=== PATIENT | male | born 1975 | race Caucasian/White ===

== ENCOUNTER → 2018-05-05 17:39 | Outpatient (CLI) | payer OTHER, SELFPAY | PROVIDERS: Family Provider Internal Medicine; PCP Internal Medicine; Referring Provider Otolaryngology; Visit Provider Otolaryngology | DX: J32.9 Chronic sinusitis, unspecified (principal) | CPT/HCPCS: 87070; 87205 ==

== ENCOUNTER → 2020-12-09 20:00 | Outpatient (CLI) | payer OTHER, SELFPAY | PROVIDERS: Visit Provider Otolaryngology Otolaryngology/Facial Plastic Surgery | DX: G47.33 Obstructive sleep apnea (adult) (pediatric) (principal) | CPT/HCPCS: 95810 ==

== ENCOUNTER 2021-07-15 20:10 | Emergency (ER) | payer OTHER, SELFPAY ==
[2021-07-15 20:11] VITALS: BP 172/100; PULSE 73; RESP 16; TEMP 36.2; O2SAT 97; BMI 32.3
[2021-07-15] MEDS: Diphth,Pertuss(Acell),Tet Vac 0.5 ML Vial IM (21:33)
[2021-07-15] MEDS: Lidocaine 1% /Epi 1:100 (20ml) 20 ML Vial INFILT (21:33)
--- NOTE | 2021-07-15 21:33 | EX.ED.GENINJ ---
HPI History of Present Illness Chief Complaint: Laceration Informant: patient Narrative Narrative: Patient is a 46-year-old male present with laceration to his left wrist. Patient was using a telephone coin box collector to open a package when he accidentally cut his wrist with the knife. He is right-hand dominant. This occurred around 8 PM. He had significant bleeding at the time and has since stopped. Has some numbness and tingling of his thumb and index finger. No other complaints at this time. Is not on any blood thinners. Is not sure when his last tetanus was. Tetanus Immunization: Unknown [facility] Home Medications Oral appliance #1 ea 01/25/21 [Rx Last Taken Unknown] venlafaxine 75 mg capsule,extended release 24 hr 75 mg PO DAILY 01/25/21 [History Last Taken Unknown] Allergy/AdvReac Type Severity Reaction Status Date / Time Iodinated Contrast Media AdvReac hives Verified 07/15/21 20:11 meperidine [From Demerol] AdvReac Nausea Verified 07/15/21 20:11 Social History (Reviewed 01/25/21 @ 13:32 by Angie Webb SOCIAL SERVICE TECHNICIAN, SOCIAL SERVICE TECHNICIAN-C) Smoking Status: Never smoker ROS ROS ED Constitutional Constitutional ED: Denies chills or fever(s) Eyes Eyes: Denies change in vision ENT ENT ED: Denies sore throat Cardiovascular Cardiovascular: Denies chest pain Respiratory/Chest Respiratory/Chest: Denies dyspnea Gastrointestinal Gastrointestinal: Denies nausea or vomiting Musculoskeletal Musculoskeletal: Reports other Details: left wrist pain Integumentary Reports other Details: laceration to left wrist Neurologic Neurologic: Reports paresthesias; Denies headache(s) or weakness Psychiatric Psychiatric: Denies depression Hematologic/Lymphatic Hematologic/Lymphatic: Denies easy bleeding or easy bruising EXAM Physical Exam Const Vital Signs: 07/15/21 20:11 07/15/21 22:10 Temperature 97.2 F L Temperature Source Temporal Pulse Rate 73 Respiratory Rate 16 16 Blood Pressure 172/100 H Blood Pressure Mean 124 Pulse Ox 97 Oxygen Delivery Method Room Air Positive well nourished and well developed General Appearance ED: well developed and NAD HEENT atraumatic Eyes PERRL and EOMs intact bilaterally Chest Wall inspection of chest normal Resp normal respiratory effort Cardio regular rhythm Cardio Narrative: 2+ left radial pulse. Rate: regular rate GI non-distended Extremity normal to inspection and full ROM General Extremety ED: Negative for deformity or tenderness General Extremity: Negative for deformity Neuro oriented x3 and moves all extremities Neuro Narrative: Subjective paresthesias to the left thumb and lateral aspect of the index finger. Normal intrinsic movements of the hand. Able to give a thumbs up, make a fist and make an okay sign. Normal flexion and extension of the wrist. Sensorium / Orientation: alert Skin Skin Narrative: 4 cm full-thickness linear laceration over the lateral aspect of the left wrist running proximal to distal. PROC Procedures Lacerations wrist : Length: 1.57 in Depth: Skin Shape: Linear Prep: Sterile Conditions and Chlorhexadine Laceration repair: Irrigated, Lidocaine with epi, Skin sutures and Wound explored Irrigated (ml): 250 Number of Sutures/Abhinav: 3 Suture Information: Ethilon, Horizontal (3), Mattress and 4-0 Comment: No pulsatile bleeding noted. MDM MDM MDM Narrative Medical decision making narrative: Patient evaluated for laceration to his left wrist. He is right-hand dominant. Patient initially had no bleeding however on range of motion of the wrist he started having brisk oozing. There is no pulsatile bleeding. Radial pulse is palpable just medial to the laceration. I do not feel any pulsatile hematoma. I do not visualize exact source of bleeding however it is stopped with direct pressure. Given that the bleeding was not pulsatile I do not think there is a radial artery laceration. Regardless there is good collateral blood flow. Laceration repair performed. See procedure note. Patient does have some subjective paresthesias to the radial nerve distribution however movement is intact. Wound is monitored after laceration repair and there is no further bleeding or development of hematoma. Patient has good collateral flow with Charles test to the ulnar artery. Pressure dressing is applied and an Cj wrap. Patient is given a wrist splint to to decrease range of motion while this heals. Counseled on return precautions. Patient verbalizes agreement understand this plan. Discharged home in stable condition. Discharge Plan Triage Chief Complaint: Laceration ED Provider: Ada Arroyo Dx/Rx/DC Orders Clinical Impression: Laceration of left wrist, Need for Tdap vaccination Instructions: ED Laceration Hand with ... Prescriptions: No Action venlafaxine [Effexor XR] 75 mg capsule,extended release 24hr 75 mg PO DAILY RF: 0 (DME) Oral appliance See Rx Instructions .ROUTE .MEDSUPPLY Qty: 1 RF: 0 Primary Care Provider: Kalia Long Referrals: Kalia Long MD [Primary Care Provider] - Activity Restrictions/Additional Instructions: Sutures should be removed in 10 days. Wear the splint and Cj wrap for at least 3 days. No significant activity or movement of the wrist until this heals further. Disposition Disposition: Home, Self Care Discharge Date/Time: 07/15/21 22:17
[2021-07-15 22:10] VITALS: RESP 16
== END 2021-07-15 22:17 | disposition home or self-care (01) ==
PROVIDERS: Emergency Provider Emergency Medicine; PCP Family Medicine; Visit Provider Emergency Medicine
DX: S61.512A Laceration without foreign body of left wrist, initial encounter (principal); W26.9XXA Contact with unspecified sharp object(s), initial encounter; Z23 Encounter for immunization
CPT/HCPCS: 12002; 90471; 90715; 99284

== ENCOUNTER 2021-07-16 10:45 | Emergency (ER) | payer OTHER, SELFPAY ==
[2021-07-16 10:46] VITALS: BP 150/103; PULSE 68; RESP 18; TEMP 36.6; O2SAT 98; BMI 32.3
--- NOTE | 2021-07-16 11:25 | EDS_ITS ---
HPI History of Present Illness Chief Complaint: Laceration Informant: patient and spouse/S.O. Onset/Context/Timing Onset: Yesterday Context: Gradual Onset Timing: Continuous Quality of Pain: - (sore) Location: left wrist Current Severity: Mild Maximum Severity: Moderate Narrative Narrative: Patient had an accidental laceration from a box knife to his left wrist yesterday and there was a lot of bleeding. It was repaired here, and the bleeding was much worse today, saturated the dressing and was oozing out briskly and bright red. They put a tight dressing on it and present for reevaluation. He states it is sore but not severe as far as the pain. He denies any li ghtheadedness or systemic symptoms for blood loss. PFSH PFSH no medical history Home Medications Oral appliance #1 ea 01/25/21 [Rx Last Taken Unknown] venlafaxine 75 mg capsule,extended release 24 hr 75 mg PO DAILY 01/25/21 [History Last Taken Unknown] Allergy/AdvReac Type Severity Reaction Status Date / Time Iodinated Contrast Media AdvReac hives Verified 07/16/21 10:48 meperidine [From Demerol] AdvReac Nausea Verified 07/16/21 10:48 Social History Smoking Status: Never smoker ROS ROS ED Constitutional Constitutional ED: Denies chills or fever(s) Musculoskeletal Musculoskeletal: Reports extremity pain; Denies neck pain Integumentary Reports as per HPI and wounds; Denies Abrasions or rash Neurologic Neurologic: Denies paresthesias or weakness EXAM Physical Exam Const Vital Signs: 07/16/21 10:46 Temperature 97.9 F Temperature Source Temporal Pulse Rate 68 Respiratory Rate 18 Blood Pressure 150/103 H Blood Pressure Mean 118 Pulse Ox 98 Oxygen Delivery Method Room Air Positive well nourished and well developed General Appearance ED: well developed and NAD Neck full ROM and supple Back/Spine normal ROM and normal to inspection Extremity full ROM Extremity Narrative: Full range of motion left hand and wrist, no active bleeding from laceration no signs of infection Neuro oriented x3, no focal motor deficits and no sensory deficits noted Sensorium / Orientation: alert Psych mental status grossly normal and thought process normal Skin Skin Narrative: sutured laceration left radial volar wrist, no active bleeding. Hematoma present volar wrist. Difficult to palpate radial and ulnar pulses but they are present more proximally. Brisk cap refill distally less than 3 seconds all fingers. Rashes: no rashes MDM MDM MDM Narrative Medical decision making narrative: Patient is reassured. If his radial artery was injured which he suspected that it was, his ulnar artery is far from the injury and is patent, he is getting good blood flow to his hand, we discussed reasons to return and ice, pressure if it happens again, which basically they did at home and it worked. Discharge Plan Triage Chief Complaint: Laceration ED Provider: Arcadio Dawn Dx/Rx/DC Orders Clinical Impression: Bleeding from wound, Visit for wound check Instructions: ED Post Op Wound Check, Bleeding Prescriptions: No Action venlafaxine [Effexor XR] 75 mg capsule,extended release 24hr 75 mg PO DAILY RF: 0 (DME) Oral appliance See Rx Instructions .ROUTE .MEDSUPPLY Qty: 1 RF: 0 Primary Care Provider: Kalia Long Referrals: Kalia Long MD [Primary Care Provider] - (as previously directed) Disposition Disposition: Home, Self Care
[2021-07-16 11:26] VITALS: BP 132/88; PULSE 74; RESP 14; TEMP 36.9; O2SAT 100
== END 2021-07-16 11:36 | disposition home or self-care (01) ==
PROVIDERS: Emergency Provider Emergency Medicine; PCP Family Medicine; Visit Provider Emergency Medicine
DX: S61.512D Laceration without foreign body of left wrist, subsequent encounter (principal); W26.0XXD Contact with knife, subsequent encounter
CPT/HCPCS: 99282

== ENCOUNTER 2024-06-08 15:30 | Outpatient (RCR) | payer OTHER, SELFPAY ==
--- NOTE | 2024-05-25 19:08 | HP.PTEVAL_ITS ---
Patient's Visit Information Visit Information Visit Information: ISAÍAS ORTIZ is a 49 year old M referred to Physical Therapy by Dr. Ivan Brady MD with a diagnosis of LUMBAR RADICULOPATHY. Date of Evaluation: 05/25/24 Physical Therapist: Carlos Daley PT, Cert MDT, OCS Visit Plan Frequency: 2x /Week Duration: 4 Weeks Plan: PT INTERVENTIONS BEVERLEY EX'S ,DLS ,POSTURAL EX'S , LE FLEXABILITY ,HIP STRENGTHENING AND POSTURE/BODY MECHANICS Subjective Subjective: This 49 y/o male presents to physical therapy with lumbar radiculopathy. Patient has c/o symptoms in lumbar and left leg [address] Brady had x-rays showed DDD L4-5 ,no medication . Patient has h/o lumbar history of a microdiscectomy L5-S1 in 2007 and 2004. Plan for MRI 06/16/24. Patient has been doing well past 5 years. No specific injury or mechanism injury. Pain has no pain. Pain normally located left LS. Aggravating factors sitting, no specific lifting ar bending. Alleviating rest. Coughing/sneezing-. Bowel/bladder -. Patient sleeping okay-Patient condition affects QOL . Patient goals to decrease episode of pain. 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[employer]: Objective Objective: POSTURE: WFL PALPATION: unremarkable GAIT: reciprocal pattern NEURO: denies paresthesia/tingling ,reflexes L3-4,L4-5,L5-S1 2/3 FLEXABILITY: hamstrings min tight HIP PROM: flexion 25 degrees tightness pain LUMBAR ROM: flexion WFL ,extension min loss ,side glides min loss MMT: quads/hams 4/5 ,hip flexion 4/5 ,ankle 5/5 Special Tests L/S Slump test left side: Negative L/S Slump test right side: Negative L/S Left Straight Leg Raise: Negative L/S Right Straight Leg Raise: Negative Lumbar Standing: Flexion - Mechanical Response: No effect Lumbar Standing: Flexion - Symptoms During Testing: No effect Lumbar Standing: Flexion - Symptoms After Testing: No effect Lumbar Standing: Extension - Mechanical Response: No effect Lumbar Standing: Extension - Symptoms During Testing: Increases Lumbar Standing: Extension - Symptoms After Testing: No worse Lumbar Standing: Right Side Glides - Mechanical Response: No effect Lumbar Standing: Right Side [place] - Symptoms During Testing: No effect Lumbar Standing: Right Side [place] - Symptoms After Testing: No effect Lumbar Standing: Left Side [place] - Mechanical Response: No effect Lumbar Standing: Left Side [place] - Symptoms During Testing: No effect Lumbar Standing: Left Side [place] - Symptoms After Testing: No effect Lumbar Lying: Flexion - Mechanical Response: No effect Lumbar Lying: Flexion - Symptoms During Testing: No effect Lumbar Lying: Flexion - Symptoms After Testing: No effect Lumbar Lying: Extension - Mechanical Response: Increases motion Lumbar Lying: Extension - Symptoms During Testing: Decreases Lumbar Lying: Extension - Symptoms After Testing: Better Balance/Special Test Scores Oswestry Low Back Score: 10 Goals Goal 1:: Patient to be I with HEP for back Goal Time Frame: 4-6 Weeks Goal 2:: Patient to return to function of recovery for ADLS and housework Goal Time Frame: 4-6 Weeks Goal 3:: Patient to back oswestry score by 5 points to improve QOL Goal Time Frame: 4-6 Weeks Goal 4:: Patient to demonstrate 75% to improve function and no pain Goal Time Frame: 4-6 Weeks Rehabilitation Potential Physical Therapy Diagnosis: This patient has h/o lumbar discectomy x2 with current symptoms derangement with lumbar radiculopathy with pain worse with positioning and motion testing worse with sitting thus will benefit from skilled PT Rehabilitation Potential: Good Anticipated Interventions Patient/Client Instruction: Educate patient on: Condition and Plan of Care For the Purpose of:: To decrease pain, To increase ROM, To improve muscle performance and motor function, To improve ability to perform ADL's, To increase tolerance to activity/condition/position, To improve ability of physical actions for home/community/work/leisure, To improve health of tissue, To decrease soft tissue restriction, To increase flexibility/ROM, To reduce risk of recurrence and To prevent re-injury Therapeutic Exercise to Include: Strength training, Body mechanics, Postural training, Flexibilty training, Dynamic Lumbar Stabilization and Beverley Exercises For the Purpose of:: To decrease pain, To increase ROM, To improve muscle perfo rmance and motor function, To increase tolerance to activity/condition/position, To improve ability of physical actions for home/community/work/leisure, To improve health of tissue, To decrease soft tissue restriction, To increase flexibility/ROM, To reduce risk of recurrence and To prevent re-injury TENS: Yes IF ES: Yes Cryotherapy (ice pack, ice massage): Yes Thermo therapy (hot pack): Yes Ultrasound (thermal/non thermal): Yes For the Purpose of:: To decrease pain, To increase ROM, To improve nutrient delivery to tissue, To increase oxygenation perfusion, To improve health of tissue and To decrease soft tissue restriction Text: Thank you for the opportunity to evaluate your patient. For Medicare and Medicare HMO plans, please review the plan of care and approve it. It will need to be FAXED BACK to us at [phone] for Medicare purposes. For Medicare only, by signing this I certify the plan of care. Please let me know if there are questions or concerns regarding this plan of care. Physician Signature: Date:
--- NOTE | 2024-10-21 08:31 | HP.PT.NRP ---
Patient Information Patient Information: ISAÍAS ORTIZ was seen in my office for initial evaluation on 05/25/24. The following Plan of Care was established for this patient: POC Established Initial Frequency: 2x /Week Initial Duration: 4 Weeks Anticipated Interventions Patient/Client Instruction: Educate patient on: Condition and Plan of Care For the Purpose of:: To decrease pain, To increase ROM, To improve muscle performance and motor function, To improve ability to perform ADL's, To increase tolerance to activity/condition/position, To improve ability of physical actions for home/community/work/leisure, To improve health of tissue, To decrease soft tissue restriction, To increase flexibility/ROM, To reduce risk of recurrence and To prevent re-injury Therapeutic Exercise to Include: Strength training, Body mechanics, Postural training, Flexibilty training, Dynamic Lumbar Stabilization and Gaurav Exercises For the Purpose of:: To decrease pain, To increase ROM, To improve muscle performance and motor function, To increase tolerance to activity/condition/position, To improve ability of physical actions for home/community/work/leisure, To improve health of tissue, To decrease soft tissue restriction, To increase flexibility/ROM, To reduce risk of recurrence and To prevent re-injury TENS: Yes IF ES: Yes Cryotherapy (ice pack, ice massage): Yes Thermo therapy (hot pack): Yes Ultrasound (thermal/non thermal): Yes For the Purpose of:: To decrease pain, To increase ROM, To improve nutrient delivery to tissue, To increase oxygenation perfusion, To improve health of tissue and To decrease soft tissue restriction Last Seen Last Seen: This patient was last seen in our office . Pertinent comments regarding their Physical therapy will appear below: Patient was seen for PT for lumbar radiculopathy . Patient had MRI then surgery lumbar spine At this point I will be discontinuing this patient from physical therapy. I would be happy to see this patient again in the future if found appropriate by the physician. Thank you! Carlos Daley, PT, Cert MDT, OCS Balance/Gait/Functional tests Balance/Special Test Scores Oswestry Low Back Score: 10
== END 2024-06-08 19:00 | disposition home or self-care (01) ==
LOC: PT 15:30
PROVIDERS: PCP Family Medicine; Visit Provider Orthopaedic Surgery Orthopaedic Surgery of the Spine
DX: M54.16 Radiculopathy, lumbar region (principal)
CPT/HCPCS: 97110; 97162

== ENCOUNTER → 2024-06-15 | Outpatient (CLI) | payer OTHER, SELFPAY ==
--- NOTE | 2024-06-15 16:54 | MRI_ITS ---
PROCEDURE: SPINE LUMBAR W/WO CONTRAST 06/15/2024 REASON FOR EXAM: LUMBAR RADICULOPATHY, prior discectomy TECHNIQUE: Multiplanar and multisequence images were obtained without and with intravenous gadolinium-based contrast administration. CONTRAST: 17 cc Clariscan COMPARISON: January 07, 2007 FINDINGS: There is grade 1 retrolisthesis at L5-S1, 0.6 cm. There is loss of 20% of vertebral body height anteriorly at L1, with chronic features. There is Modic fibrotic type endplate change at L1 and L5-S1. Vertebral body marrow signal is otherwise normal. Intervertebral disc signal shows desiccation. The facets are aligned. The L1-L2 level: There is moderate central and right and left paracentral disk protrusion. There is mild bilateral lateral recess effacement. There is no significant foraminal narrowing. There is no critical central canal stenosis. The L2-L3 level: There is minimal central disk protrusion. There is no lateral recess stenosis or foraminal stenosis. There is no critical central canal stenosis. The L3-L4 level: There is moderate central and right and left paracentral disc protrusion. There is mild bilateral lateral recess effacement. There is no significant foraminal narrowing. There is mild central canal stenosis. The L4-L5 level: There is broad-based central and right and left paracentral disc protrusion with increased signal in the margin of the disc consistent with a fissure. There is moderate bilateral lateral recess stenosis. There is mild left foraminal narrowing secondary to disc protrusion. There is moderate central canal stenosis, partly secondary to ligamentous hypertrophy. The L5-S1 level: There is left paracentral disc extrusion which extends beyond the S1 endplate and into the left lateral recess and proximal portion of the neural foramen, attached at the margin, measuring 0.6 by 0.9 by 1.6 cm. There is moderate right and severe left lateral recess stenosis. There is moderate bilateral foraminal narrowing secondary to disc protrusion and facet hypertrophy. There is no central canal stenosis. The visualized conus shows normal signal characteristics. Adjacent soft tissues are unremarkable. Postcontrast images: There are no suspicious enhancing lesions. MRI/Spine Lumbar W/WO Contrast IMPRESSION: There is grade 1 retrolisthesis at L5-S1, 0.6 cm. There is loss of 20% of vertebral body height anteriorly at L1, with chronic fe atures. There is disc extrusion at L5-S1. There is mild central canal stenosis at L3-4, moderate central canal stenosis a t L4-5, with lateral recess and foraminal narrowing. Reading [facility]
== END | disposition home or self-care (01) ==
LOC: MRI 16:24
PROVIDERS: PCP Family Medicine; Referring Provider Orthopaedic Surgery Orthopaedic Surgery of the Spine; Visit Provider Orthopaedic Surgery Orthopaedic Surgery of the Spine
DX: M54.16 Radiculopathy, lumbar region (principal)
CPT/HCPCS: 72158; A9575